=== PATIENT | female | born 1985 ===

== ENCOUNTER 2018-12-04 05:40 | Outpatient (CLI) | payer BC ==
[~2018-12-04] VITALS: Ht 160 cm; Wt 61.2 kg
== END 2018-12-04 15:30 | disposition home or self-care (01) ==
LOC: PREOP 05:40
PROVIDERS: ATTEND Obstetrics & Gynecology
DX: Z01.818 Encounter for other preprocedural examination (principal)

== ENCOUNTER 2018-12-11 11:42 | Day surgery (SDC) | payer BC ==
[~2018-12-11] VITALS: Ht 160 cm; Wt 61.2 kg
[~2018-12-11 11:42] MED LIST: ACHD5005 PO; FRS325T PO; IBP600T1 PO; PNV1TABL67 PO
[2018-12-11] MEDS ORDERED: LACTATED RINGERS 1,000 ML IV PRN (11:48)
[2018-12-11] MEDS ORDERED: metroNIDAZOLE 500MG/100ML IVPB 100 ML IV ONE (12:00)
[2018-12-11] MEDS ORDERED: CATHETER FLUSH 10 ML SYR IV PRN (12:00)
[2018-12-11] MEDS ORDERED: ceFAZolin INJECTION 1,000 MG in WATER (STERILE) FOR INJECTION 10 ML IV ONE (12:00)
[2018-12-11 12:05] VITALS: BP 114/71
--- NOTE | 2018-12-11 12:59 | Anesthesia-General Post-Op ---
General Patient Condition Mental Status/LOC: Same as Preop Cardiovascular: Satisfactory Nausea/Vomiting: Absent Respiratory: Satisfactory Pain: Controlled Complications: Absent Post Op Complications Complications None Follow Up Care/Instructions Patient Instructions None needed. Anesthesia/Patient Condition Patient Condition Patient is doing well, no complaints, stable vital signs, no apparent adverse anesthesia problems. No complications reported per nursing. DEMARCUS NAJERA CRNA Dec 11, 2018 12:59
--- NOTE | 2018-12-11 13:01 | Progress Note-Pre Operative ---
Pre-Operative Progress Note H&P Reviewed The H&P was reviewed, patient examined and no changes noted. Date Seen by Provider: Dec 11, 2018 Time Seen by Provider: 12:45 Date H&P Reviewed: Dec 11, 2018 Time H&P Reviewed: 12:30 Pre-Operative Diagnosis: endometrial polyp TYRELL LUQUE DO Dec 11, 2018 13:01
--- NOTE | 2018-12-11 13:02 | Operative Report ---
Operative Report Date of Procedure/Surgery Dec 11, 2018 Surgeon (s) TYRELL LUQUE DO Ip Architect (s): Loretta Burgos, MS III Post-Operative Diagnosis Endometrial polyp Procedure Performed Hysteroscopy, dilation and curettage Description of Procedure Anesthesia Type: General Estimated blood loss (mL): minimal Specimen(s) collected/removed endometrial curettings, endometrial polyp Description of the Procedure After informed consent the patient was taken to the operating room where general anesthesia was found to be adequate where she was prepped and draped in the usual sterile fashion. The bladder was drained with a straight cath. A speculum was placed in the dorsolithotomy position and the cervix was grasped with a tenaculum. The cervix was gently dilated with Fredo dilators and then sounded to approximately 8 cm. A hysteroscope was done and revealed the above mentioned findings. I then removed the scope and did a gentle curettage to remove the polyp and the proliferative tissue. I followed up with a scope to ensure that the tissue was completely removed. The tenaculum was removed from the cervix and there was good hemostasis. the patient was awakened and taken to recovery in stable condition. Sponge, needle and instrument counts were correct times two Findings of the Procedure proliferative endometrium.LMP 2.19 endometrial polyp at the fundus Allergies and Home Medications Allergies Coded Allergies: No Known Drug Allergies (Unverified , 05/20/15) Home Medications No Active Prescriptions or Reported Meds Patient Home Medication List Home Medication List Reviewed: Yes TYRELL LUQUE DO Dec 11, 2018 13:02
[2018-12-11] MEDS ORDERED: KETOROLAC 30 MG/ML VIAL IVP ONE (13:15)
--- NOTE | 2018-12-11 13:35 | Discharge Inst-Women's Service ---
Discharge Inst-Women's Serv Depart Medication/Instructions New, Converted or Re-Newed RX: RX on Chart Final Diagnosis endometrial polyp Consults/Follow Up Additional Follow Up: Yes Activity Activity: Activity as Tolerated Driving Instructions: No Driving for 24 Hours NO SMOKING: NO SMOKING Nothing Inside Vagina: No Douching, No [place], No Tampons Diet Discharge Diet: No Restrictions Symptoms to Report to : Swelling Increased, Bleeding Excessive, Fever Over 101 Degrees F, Vaginal Bleeding Increase, Cramps in Feet or Legs, Vaginal Discharge Foul For Any Problems or Questions: Contact Your Physician Skin/Wound Care Bathing Instructions: TYRELL Medel DO Dec 11, 2018 13:35
[2018-12-11] MEDS ORDERED: ACET-2267 PO (13:38)
[2018-12-11] MEDS ORDERED: IBUP-1773 PO (13:38)
[2018-12-11] MEDS ORDERED: OXYC-529 PO (13:38)
[2018-12-11 14:15] VITALS: BP 102/70
[2018-12-11 14:45] VITALS: BP 98/69
[2018-12-11 15:15] VITALS: BP 106/68
[2018-12-11] MEDS ORDERED: morphine INJ 10 MG/ML 1ML (SYR OR VIAL) IVP ONE (15:15)
[2018-12-11] MEDS ORDERED: ONDANSETRON 4 MG/2 ML (SDV) Z0FRAN IVP PRN (15:15)
[2018-12-11 15:25] VITALS: BP 106/68
== END 2018-12-11 15:25 | disposition home or self-care (01) ==
LOC: SDC 11:42
PROVIDERS: ATTEND Obstetrics & Gynecology
DX: N84.0 Polyp of corpus uteri (principal); N91.2 Amenorrhea, unspecified
CPT/HCPCS: 84703; 87081

== ENCOUNTER → 2020-06-30 | Outpatient (CLI) | payer BC ==
[~2020-06-30] MED LIST changes: +ACET-2267 PO; +IBUP-1773 PO; +OXYC5TAB96 PO
--- NOTE | 2020-06-30 13:53 | Diagnostic Imaging Report ---
INDICATION: survey. TECHNIQUE: Multiple real-time grayscale images were obtained over the gravid uterus. COMPARISON: None FINDINGS: There is a single live fetus in a breech presentation. heart rate was recorded at 150 bpm. Placenta is posterior. No previa is identified. Amniotic fluid index is 18.2 cm. survey demonstrates kidneys, bladder and stomach to be unremarkable. brain is unremarkable. There is a four-chamber heart. There is a three-vessel cord with normal insertion. spine is unremarkable. Biometrical measurements are as follows: Biparietal 5.52 cm, age 22 weeks 6 days. Head circumference 20.61 cm, age 22 weeks 6 days. Abdominal circumference 18.80 cm, age 23 weeks 4 days. Femur length 4.03 cm, age 23 weeks 1 days. Sonographic estimate age: 23 weeks 1 days. Sonographic estimated date of delivery: 10/26/2020. Estimated Weight: 576 gm (+/- 84 gm). LMP percentile: 98%. heart rate: 150 beats per minute. number: 1 of 1. IMPRESSION: Single live IUP 23 weeks 1 day gestational age. Estimated date of confinement sonographically is 10/26/2020. Dictated by: Dictated on workstation # [id number]
== END ==
LOC: RAD 12:00
PROVIDERS: ATTEND Nurse Practitioner Women's Health
DX: Z36.89 Encounter for other specified antenatal screening (principal); Z3A.23 23 weeks gestation of pregnancy
CPT/HCPCS: 76805

== ENCOUNTER → 2020-10-26 | Outpatient (CLI) | payer BC ==
[~2020-10-26] MED LIST changes: +OXC5T PO; -OXYC5TAB96 PO
== END ==
LOC: LABNPT 08:30
PROVIDERS: ATTEND Obstetrics & Gynecology
DX: Z01.89 Encounter for other specified special examinations (principal); Z20.822 Contact with and (suspected) exposure to COVID-19
CPT/HCPCS: 87635